=== PATIENT | female | born 1960 | race Caucasian/White ===

== ENCOUNTER → 2018-02-18 | Outpatient (CLI) | payer MEDICARE ==
[~2018-02-18] MED LIST: GADOBUTROL 7.5 MMOL/7.5 ML PFS ONE
== END ==
LOC: RAD 14:19
PROVIDERS: ATTEND Radiology Diagnostic Radiology
DX: D33.3 Benign neoplasm of cranial nerves (principal)
CPT/HCPCS: 70553; A9585

== ENCOUNTER → 2018-08-30 | Outpatient (CLI) | payer MEDICARE ==
[2018-08-30 16:06] LABS: ALANINE AMINOTRANSFERASE 18 U/L (12-78); ALBUMIN 3.6 g/dL (3.4-5.0)
[2018-08-30 16:08] LABS: ALKALINE PHOSPHATASE 87 U/L (45-117); BILIRUBIN,TOTAL 0.2 mg/dL (0.2-1.0); TOTAL PROTEIN 6.9 g/dL (6.4-8.2)
[2018-08-30 16:20] LABS: BILIRUBIN, DIRECT < 0.1 mg/dL (0.1-0.2); BILIRUBIN,INDIRECT 0.1 mg/dL (0.0-2.0)
== END | disposition home or self-care (01) ==
LOC: LAB 15:23
PROVIDERS: ATTEND Family Medicine
DX: R94.5 Abnormal results of liver function studies (principal)
CPT/HCPCS: 36415; 80074; 80076

== ENCOUNTER 2018-09-14 18:40 | Emergency (ER) | payer MEDICARE ==
[~2018-09-14] VITALS: Ht 157.5 cm; Wt 47.4 kg
[2018-09-14 19:24] VITALS: BP 131/83
[2018-09-14] MEDS ORDERED: ONDANSETRON ODT 4 MG ONE (19:36)
[2018-09-14] MEDS ORDERED: ONDANSETRON ODT 4 MG PO ONE (20:00)
[2018-09-14 20:34] LABS: BASOPHILS # (AUTO) 0.05 x10^3/uL (0-0.1); BASOPHILS % (AUTO) 1 % (0-1); EOSINOPHILS # (AUTO) 0.16 x10^3/uL (0-0.4); EOSINOPHILS % (AUTO) 2 % (1-7); LYMPHOCYTES # (AUTO) 3.64 x10^3/uL (1-3.4); LYMPHOCYTES % (AUTO) 48 % (22-44); MD NO; MEAN CORPUSCULAR HEMOGLOBIN 30.9 pg (27.0-34.8); MEAN CORPUSCULAR HGB CONC 34.3 g/dL (32.4-35.8); MEAN CORPUSCULAR VOLUME 90.2 fL (80-100); MEAN PLATELET VOLUME 8.1 fL (7.4-10.4); MONOCYTES # (AUTO) 0.48 x10^3/uL (0.2-0.8); MONOCYTES % (AUTO) 6 % (2-9); NEUTROPHILS # (AUTO) 3.26 x10^3/uL (1.8-6.8); NEUTROPHILS % (AUTO) 43 % (42-75); PLATELET COUNT 351 x10^3/uL (130-400); RED BLOOD COUNT 4.35 x10^6/uL (3.82-5.3); RED CELL DISTRIBUTION WIDTH 13.4 % (9.6-15.2)
[2018-09-14 20:44] LABS: ALANINE AMINOTRANSFERASE 21 U/L (12-78); ALBUMIN 3.6 g/dL (3.4-5.0); ANION GAP 9 mmol/L (5-15); CALCIUM 8.5 mg/dL (8.5-10.1); CHLORIDE 98 mmol/L (98-107); CREATININE 0.67 mg/dL (0.55-1.02)
[2018-09-14 20:49] LABS: ALKALINE PHOSPHATASE 83 U/L (45-117); BILIRUBIN,TOTAL 0.2 mg/dL (0.2-1.0); TOTAL PROTEIN 6.7 g/dL (6.4-8.2); TROPONIN I < 0.015 ng/mL (0.000-0.045)
== END 2018-09-14 22:11 | disposition home or self-care (01) ==
LOC: ED 21:04
DX: R07.89 Other chest pain (principal)
CPT/HCPCS: 36415; 71045; 80053; 84484; 85025; 93005; 99285; Q0162

== ENCOUNTER 2019-09-23 12:37 | Emergency (ER) | payer MEDICARE ==
[~2019-09-23] VITALS: Ht 157.5 cm; Wt 46.5 kg
[2019-09-23 12:45] VITALS: BP 101/61
[2019-09-23] MEDS ORDERED: LORA-445 PO (13:17)
[2019-09-23] MEDS ORDERED: CITA10TA8 PO (13:17)
[2019-09-23] MEDS ORDERED: GABA300C10 PO (13:17)
[2019-09-23] MEDS ORDERED: HYDR-3622 PO (13:17)
--- NOTE | 2019-09-23 13:18 | NUR ---
BOTH FEET ELEVATED ON PILLOWS AND ICE PACK APPLIED
--- NOTE | 2019-09-23 16:44 | NUR ---
PT REFUSES SPLINT APPLICATIONS. RADHA WRAPS TO BILAT FEET AND ANKLE WITH EDUCATION REGARDING CSM CHECK. WHEELCHAIR HAS BEEN ORDERED THROUGH CASE MANAGEMENT AND WE NOW WAITING FOR DELIVERY. PT IS D/C AT THIS TIME VIA HOSPITAL WHEELCHAIR. PT VERBALIZES THAT SHE WILL WAIT IN THE HOSPITAL FOR THE DELIVERY OF THE WHEELCHAIR FOR HOME USE. SHE LEFT ME HER CELL PHONE NUMBER AND HER HUSBANDS NUMBER. SHE VERBALIZED THAT SHE WILL BE GOING OUTSIDE TO SMOKE AND THEN TO THE [place] TO GET SOMETHING TO EAT. QUIN [phone] ESTER [phone]
--- NOTE | 2019-09-23 17:32 | NUR ---
WHEELCHAIR DELIVERED. PT INSTRUCTED ON USE AND DEMONSTRATED ABILITY TO SAFELY TRANSFER WITH MIN ASSISTANCE FROM .
== END 2019-09-23 17:34 | disposition home or self-care (01) ==
LOC: ED 13:16
DX: S92.214A Nondisplaced fracture of cuboid bone of right foot, initial encounter for closed fracture (principal); S92.355A Nondisplaced fracture of fifth metatarsal bone, left foot, initial encounter for closed fracture; F17.200 Nicotine dependence, unspecified, uncomplicated; Z88.0 Allergy status to penicillin; Z88.1 Allergy status to other antibiotic agents; X50.1XXA Overexertion from prolonged static or awkward postures, initial encounter; Y93.89 Activity, other specified; Y92.009 Unspecified place in unspecified non-institutional (private) residence as the place of occurrence of the external cause; Y99.8 Other external cause status
CPT/HCPCS: 99284

== ENCOUNTER 2020-06-06 12:56 | Outpatient (CLI) | payer MEDICARE ==
[~2020-06-06 12:56] MED LIST changes: +CITA10TA8 PO; +GABA300C10 PO; -GADOBUTROL 7.5 MMOL/7.5 ML PFS ONE; +HYDR-3622 PO; +LORA-445 PO
[2020-06-06] MEDS ORDERED: OMNIPAQUE 350 MG/ML, 100ML BOTTLE ONE (15:11)
== END 2020-06-06 23:59 | disposition home or self-care (01) ==
LOC: CFH 12:56
PROVIDERS: ATTEND Radiology Diagnostic Radiology
DX: Z12.2 Encounter for screening for malignant neoplasm of respiratory organs (principal); I25.10 Atherosclerotic heart disease of native coronary artery without angina pectoris; Z87.891 Personal history of nicotine dependence; Z77.098 Contact with and (suspected) exposure to other hazardous, chiefly nonmedicinal, chemicals
CPT/HCPCS: 74160; 82565; G0297; Q9967

== ENCOUNTER → 2020-06-21 | Outpatient (CLI) | payer MEDICARE | END | disposition home or self-care (01) | LOC: CFH 10:28 | PROVIDERS: ATTEND Family Medicine | DX: Z13.6 Encounter for screening for cardiovascular disorders (principal); R07.9 Chest pain, unspecified | CPT/HCPCS: 75571 ==